=== PATIENT | female | born 1995 | race Caucasian/White ===

== ENCOUNTER 2019-03-22 15:53 | Emergency (ER) | payer OTHER ==
[2019-03-22 16:13] VITALS: BP 122/72
--- NOTE | 2019-03-22 16:40 | UC ---
Lower Extremity/Ankle HPI - HPI Summary HPI Summary: Pt presents with c/o left lower leg swelling and abrasion. Pt was walking in house and stepped in open heating vent that was covered with object. Pt has scabbed abrasion on left anterior lower vance. Pt is 32 1/2 weeks . - History of Current Complaint Chief Complaint: UCLowerExtremity Stated Complaint: LT LEG COMPLAINT Time Seen by Provider: 03/22/19 16:31 Hx Obtained From: Patient ?: Yes - Due 05/13/19 Onset/Duration: Sudden Onset, Lasting Days, Still Present Severity Initially: Moderate Severity Currently: Mild Pain Intensity: 3 Aggravating Factor(s): Standing Alleviating Factor(s): Rest, Elevation Able to Bear Weight: Yes - Risk Factors Gout Risk Factors: Negative DVT Risk Factors: Septic Arthritis Risk Factor: Negative - Allergies/Home Medications Allergies/Adverse Reactions: Allergies Allergy/AdvReac Type Severity Reaction Status Date / Time No Known Allergies Allergy Verified 03/22/19 16:05 Home Medications: Home Medications Acetaminophen [Acetaminophen Extra Strength] 500 mg PO Q6H PRN 03/22/19 [ History Confirmed 03/22/19] Vitamin TAB* 1 tab PO DAILY 03/22/19 [History Confirmed 03/22/19] PMH/Surg Hx/FS Hx/Imm Hx Previously Healthy: Yes - Surgical History Surgical History: Yes Surgery Procedure, Year, and Place: Left Foot Fracture repaired with Three Screws, 2018, [place]; Appendectomy, 2010, [place] - Family History Known Family History: Positive: Cardiac Disease - Social History Occupation: Employed Full-time Lives: With Family Alcohol Use: None Substance Use Type: None Smoking Status (MU): Former Smoker Type: Cigarettes Length of Time of Smoking/Using Tobacco: <1/2 PPD x 10 Years Have You Smoked in the Last Year: Yes When Did the Patient Quit Smoking/Using Tobacco: 09/04/18 - Immunization History Vaccination Up to Date: Yes Review of Systems All Other Systems Reviewed And Are Negative: Yes Constitutional: Positive: Negative Skin: Positive: Other - dried scab an dhealing wound left anterior lower extremity Eyes: Positive: Negative ENT: Positive: Negative Respiratory: Positive: Negative Cardiovascular: Positive: Negative Gastrointestinal: Positive: Negative Genitourinary: Positive: Negative Motor: Positive: Negative Neurovascular: Positive: Negative Musculoskeletal: Positive: Negative, Edema - non pitting edema, Myalgia Neurological: Positive: Negative Psychological: Positive: Negative Is Patient Immunocompromised?: No Physical Exam Triage Information Reviewed: Yes Appearance: Well-Appearing Vital Signs: Initial Vital Signs Temp 98 F 03/22/19 16:07 Pulse 92 03/22/19 16:07 Resp 18 03/22/19 16:07 BP 122/72 03/22/19 16:07 Pulse Ox 99 03/22/19 16:07 Vital Signs Reviewed: Yes Eye Exam: Normal ENT Exam: Normal ENT: Positive: Hearing grossly normal Dental Exam: Normal Neck exam: Normal Respiratory: Positive: No respiratory distress Musculoskeletal Exam: Normal Musculoskeletal: Positive: Strength Intact, ROM Intact, No Edema - no pitting edema. bialteral lower extremity, no calf tendereness, red streaking or notable swelling in either lower extremity Neurological Exam: Normal Psychological Exam: Normal Skin Exam: Other - smal 1 cm X 5 mm dried scab on left anterior lower extremity Lower Extremity Course/Dx - Differential Dx/Diagnosis Differential Diagnosis/HQI/PQRI: DVT, Infection Provider Diagnosis: Swelling of lower leg, Abrasion of left leg, Healing wound Discharge ED - Sign-Out/Discharge Documenting (check all that apply): Patient Departure All imaging exams completed and their final reports reviewed: No Studies - Discharge Plan Condition: Stable Disposition: HOME Patient Education Materials: Leg Edema (ED), Abrasion (ED) Referrals: [facility]FERR[facility] [Outside] - If Needed No Primary Care Phys,NOPCP [Primary Care Provider] - Additional Instructions: Please follow up with your PCP as needed. If your symptoms worsen, please seek care as soon as possible. - Billing Disposition and Condition Condition: STABLE Disposition: Home
== END 2019-03-22 16:48 | disposition home or self-care (01) ==
LOC: UCCORT 15:53
DX: S80.812A Abrasion, left lower leg, initial encounter (principal); S80.922D Unspecified superficial injury of left lower leg, subsequent encounter; M79.89 Other specified soft tissue disorders; Z87.891 Personal history of nicotine dependence; W22.09XA Striking against other stationary object, initial encounter; X58.XXXD Exposure to other specified factors, subsequent encounter; Y93.01 Activity, walking, marching and hiking; Y92.009 Unspecified place in unspecified non-institutional (private) residence as the place of occurrence of the external cause
CPT/HCPCS: 99211; G0463

== ENCOUNTER 2019-05-15 00:56 | Inpatient (IN) | payer OTHER ==
[2019-05-15] MEDS ORDERED: Buffered Lidocaine 1% SYRIN* 1 ML/SYRINGE INTRADERM ONE (01:43)
[2019-05-15] MEDS ORDERED: Promethazine INJ(RESTRICTED)* 25 MG/ML 1 ML VIAL IV ONE (01:43)
[2019-05-15] MEDS ORDERED: Lactated Ringers 1000 ML Bag* 1,000 ML IV ONE ×2 (01:43→05:45)
--- NOTE | 2019-05-15 01:54 | HP ---
General Information - Reason for Visit Leaking fluid - General Information Maternal Age: 23 Grav: 1 Para: 0 SAB: 0 IEA: 0 Estimated Due Date: 05/13/19 Determined By: LMP Gestational Age in Weeks/Days: 40 2/7 Maternal Blood Type and Rh: A Negative - Results this Serology/RPR Result: Non-Reactive Rubella Result: Non-Immune HBsAg Result: Negative HIV Result: Negative GBS Culture Result: Negative Past Medical History Delivery History: See Records Delivery History Comment: no prior deliveries Pertinent Past Medical History: Non-Contributory Pertinent Past Surgical History: See Records Past Surgical History Comment: Appendectomy (2012) Left foot surgery (2018) Pertinent Family History: Non-Contributory - Antepartal Records Antepartal Records: Reviewed, Complicated by: - Rh negative, rubella nonimmune, obesity, hyperemesis Review of Systems Constitutional: Uncomfortable CV Complaint: No Respiratory: Shortness of Breath: No Gastrointestinal: Nausea, Vomiting, Diarrhea Genitourinary: Leaking Fluid, No Dysuria, No Bleeding Musculoskeletal: No Epigastric Pain, Contractions Neurological: No Headache, No Visual Changes Movement: Normal Exam Allergies/Adverse Reactions: Allergies No Known Allergies Allergy (Verified 05/15/19 01:00) B/P: 155/81, P: 99, R: 20, T: 98.1 Lab Values - Entire Visit: Laboratory Tests 05/15/19 01:10 Vag Amniotic Fld Detect Positive - Measurements Height: 5 ft Weight: 229 lb Weight in lbs: 229.522790 Body Mass Index (BMI): 44.7 Pre- Weight: 197 lb Weight Gained This : 32 lbs and 0 ozs - Exam Breast: Breast Exam Deferred CVA: No CVA Tenderness Extremities: No Edema Heart: Normal Rhythm/Heart Sounds HEENT: No Significant Findings Lungs: Clear Bilaterally Reflexes: DTR 2+ Thyroid: No Thyromegaly - Abdominal Exam Abdomen Exam: Non-Tender, Fundal Height Consistent with Dates - Ultrasound/Biophysical Profile Ultrasound Status: Not Done Targeted Exam Findings See L&D Outpatient Visit Provider Note for Findings: N/A Estimated Weight: 7 lbs by osmin Cervical Exam: 3cm Effacement: 80% Station: -2 Presenting Part: Vertex Membrane Status: SROM Amniotic Fluid Evaluation: Positive ROM Plus Bleeding/Discharge: None EFM Findings - External Monitor Findings Baseline Heart Rate: 135 External Monitor Findings: No Pattern of Variable or Late Decelerations, Variability Moderate, Baseline Stable Contractions: Regular, Moderate, 45-90 Seconds Contraction Frequency: q 3-4 min Assessment/Plan - Assessment A: IUP at 40 2/7 weeks Category I FHR, no evidence of metabolic acidemia GBS negative SROM x 2 hrs P: Admit to inpatient Start IV, draw labs Encourage position changes to promote labor progress Reassess PRN Anticipate SVB - Obstetrical Risk Factors Obstetrical Risk Factors: Obesity - Plan Plan: Admit - Anticipate Vaginal Delivery - Date/Time of Admission Date of Admission: 05/15/19 Time of Admission: 01:45
[2019-05-15] MEDS ORDERED: fentaNYL* 50 MCG/ML 2 ML VIAL (100 MCG VIAL) IV SLOW PU ONE (02:00)
[2019-05-15 02:35] LABS: Hematocrit 37 % (35-47); Hemoglobin 12.4 g/dL (12.0-16.0); Mean Corpuscular HGB Conc 34 g/dL (31-36); Mean Corpuscular Hemoglobin 29 pg (27-31); Mean Corpuscular Volume 86 fL (80-97); Mean Platelet Volume 9.1 fL (7.4-10.4); Platelet Count 165 10^3/uL (150-450); Red Blood Count 4.28 10^6 /uL (3.70-4.87); Red Cell Distribution Width 15 % (10-15); White Blood Count 23.6 10^3/uL (3.5-10.8)
[2019-05-15 02:54] LABS: Urine Benzodiazepine Screen None Detected (None Detect); Urine Opiates Screen None Detected (None Detect)
[2019-05-15 03:05] LABS: ABS Basophils 0.1 10^3/ul (0-0.2); ABS Monocytes 1.9 10^3/ul (0-0.8); ABS Neutrophils 19.7 10^3/ul (1.5-7.7); Lymphocyte % 8.3 %
[2019-05-15] MEDS ORDERED: OBEPIDURAL* 250 ML EPIDURAL ONE (04:49)
[2019-05-15] MEDS ORDERED: Bupivacaine 0.25% SDV PF* 10 ML VIAL INJ ONE ×2 (04:55→04:56)
--- NOTE | 2019-05-15 04:55 | PN ---
Progress Note - Progress Note Date of Service: 05/15/19 Note: S: Feeling increasingly uncomfortable, requesting epidural. Has tried IV pain meds, tub O: B/P: 134/64, P: 108, R: 20, T: 98.1 FHR: 140s by auscultation UCs: q 2-4 min by palpation, moderate VE: 5.5/90/-2, clear fluid A: IUP at 40 2/7 weeks No evidence of metabolic acidemia SROM x 5 hrs Active labor P: Dr. Nelson paged, will be down shortly Reassess PRN Anticipate SVB
[2019-05-15] MEDS ORDERED: Phenylephrine 40 MCG/ML SYRINGE ONE (05:28)
[2019-05-15] MEDS: Lactated Ringers 1000 ML Bag* 1,000 ML IV SCH ×3 (05:37→08:52)
[2019-05-15] MEDS: Phenylephrine 40 MCG/ML SYRINGE IV PUSH PRN ×2 (05:40→05:43)
[2019-05-15] MEDS ORDERED: Sodium Citrate/Citric Acid* 15 ML UDC PO PRN (05:45)
[2019-05-15] MEDS ORDERED: Famotidine TAB* 20 MG PO PRN (05:45)
[2019-05-15] MEDS: EPHEDrine (Pressors)* 50 MG/ML VIAL IV PUSH PRN ×2 (05:50→06:12)
[2019-05-15] MEDS ORDERED: OBEPIDURAL* 250 ML EPIDURAL SCH (06:00)
[2019-05-15] MEDS ORDERED: Lactated Ringers 1000 ML Bag* 1,000 ML IV SCH ×2 (06:00→12:00)
[2019-05-15] MEDS ORDERED: Acetaminophen TAB* 325 MG PO ONE (08:38)
[2019-05-15] MEDS ORDERED: Acetaminophen TAB* 325 MG ONE (08:40)
[2019-05-15] MEDS ORDERED: Oxytocin in LR* 20 UNITS/1,000 ML BAG IVPB ONE (08:43)
[2019-05-15] MEDS ORDERED: Ampicillin ADVAN(*) 2 GM in NS 0.9% 100 ML* 100 ML IVPB ONE (08:45)
[2019-05-15] MEDS ORDERED: Ondansetron INJ* 2 MG/ML VIAL IV PRN (08:49)
[2019-05-15] MEDS ORDERED: GENTAMICIN ADULT IVPB ONE (09:00)
[2019-05-15] MEDS ORDERED: NS 0.9% IVPB ONE (09:00)
[2019-05-15] MEDS ORDERED: GENTAMICIN ADULT IVPB SCH (09:00)
[2019-05-15] MEDS ORDERED: NS 0.9% IVPB SCH (09:00)
[2019-05-15] MEDS ORDERED: Ondansetron INJ* 2 MG/ML VIAL ONE (09:01)
[2019-05-15] MEDS ORDERED: Clindamycin 900 MG/D5W BAG(*) 900 MG/50 ML BAG IVPB ONE (10:32)
[2019-05-15] MEDS ORDERED: Glycerin ADULT SUPP PR PRN (11:47)
[2019-05-15] MEDS ORDERED: Witch Hazel PAD* JAR TOPICAL PRN (11:47)
[2019-05-15] MEDS ORDERED: Dibucaine 1% 28.35 GM TUBE PR PRN (11:47)
[2019-05-15] MEDS ORDERED: Oxytocin in LR* 20 UNITS/1,000 ML BAG IVPB SCH (12:00)
[2019-05-15] MEDS: Ibuprofen TAB* 600 MG PO SCH ×2 (12:27→17:57)
[2019-05-15] MEDS ORDERED: RHO D Immune Globulin (HUMAN)* 300 MCG = 1,500 I.U. INJ IM ONE (13:45)
--- NOTE | 2019-05-15 13:57 | PROCNOTE ---
[facility] OB: Delivery Note - Delivery A Date of : 05/15/19 Time of : 11:24 [place] Sex: Male Weight at : 3410 lb Score 1 Minute: 5 Score 5 Minutes: 7 Gestational Age in Weeks and Days at Delivery: 40 Weeks and 2 Days Delivery Method: Spontaneous Vaginal Labor: Spontaneous Did Patient attempt ?: N/A, No Previous Amniotic Fluid: Meconium Estimated Blood Loss: 300 Anesthesia/Analgesia: CEI for Labor Delivered By: Nadira Lam Nursery Level of Nursery: Regular/Bedside - Perineum Perineal Injury: None/Intact Perineal Repair: None - Events Delivery Events of Note: Pitocin During Labor, Chorio in Labor, Maternal Temperature during Labor, Full Course of Antibiotics, Internal Scalp EKG - Additional Delivery Notes Additional Delivery Notes: Maternal temperature over 100.4 on two occasions 30 minutes apart with FHR >160 - dx of chorioamnionitis made. Treated with ampicillin, gentamicin, clindamycin , and PO Tylenol. Cervix at 10cm, pushing ensued. Normal spontaneous vertex delivery () of a liveborn male, 3410 grams and 's 5/7. Delivered right occiputo-anterior (EDUARDO), nuchal cord x1, light meconium. Body delivered without difficulty and placed on maternal abdomen. Nose and mouth bulb suctioned. Cord cut and clamped. Baby brought to warmer for additional help with transition. Placenta delivered spontaneously, via moeller, 3vc; appears intact. Perineum and vagina inspected - intact. Baby returned to maternal abdomen. Fundus firm, scant bleeding, pitocin infusing. EBL 300mL. Mother and baby in stable condition at time of note.
[2019-05-15] MEDS: Docusate CAP* 100 MG PO SCH ×2 (17:57→19:41)
[2019-05-15] MEDS: Simethicone TAB* 80 MG TAB.CHEW PO SCH ×2 (18:34→21:49)
[2019-05-15] MEDS: Acetaminophen TAB* 325 MG PO PRN (19:41)
[2019-05-16] MEDS: Ibuprofen TAB* 600 MG PO SCH ×4 (00:05→20:12)
[2019-05-16 06:10] LABS: Hematocrit 30 % (35-47); Hemoglobin 10.1 g/dL (12.0-16.0); Mean Corpuscular HGB Conc 34 g/dL (31-36); Mean Corpuscular Hemoglobin 29 pg (27-31); Mean Corpuscular Volume 86 fL (80-97); Mean Platelet Volume 9.3 fL (7.4-10.4); Platelet Count 146 10^3/uL (150-450); Red Blood Count 3.46 10^6 /uL (3.70-4.87); Red Cell Distribution Width 15 % (10-15); White Blood Count 30.4 10^3/uL (3.5-10.8)
[2019-05-16 06:20] LABS: ABS Eosinophils 0.1 10^3/ul (0-0.6); ABS Lymphocytes 3.4 10^3/ul (1.0-4.8); ABS Monocytes 1.9 10^3/ul (0-0.8); Eosinophil % 0.2 %; Lymphocyte % 11.2 %
[2019-05-16] MEDS ORDERED: Measles, Mumps,Rubella VACC* 0.5 ML/VIAL SUBCUT ONE ×2 (09:00→12:00)
[2019-05-16] MEDS ORDERED: Ferrous Gluconate TAB* 324 MG TAB PO SCH (09:00)
[2019-05-16] MEDS: Docusate CAP* 100 MG PO SCH ×3 (09:40→20:12)
[2019-05-16] MEDS ORDERED: RHO D Immune Globulin (HUMAN)* 300 MCG = 1,500 I.U. INJ IM ONE (16:00)
[2019-05-16] MEDS: Acetaminophen TAB* 325 MG PO PRN (23:42)
[2019-05-17] MEDS: Ibuprofen TAB* 600 MG PO SCH (04:33)
--- NOTE | 2019-05-17 06:44 | PTEDU ---
Patient Name: JORGE MAYA JORGE MAYA selected video: Never Ever Shake a Baby to view on 05/17/2019 at 6:43:38 AM from Raym[facility] [id number]
[2019-05-17] MEDS: Docusate CAP* 100 MG PO SCH (08:24)
[2019-05-17] MEDS: Acetaminophen TAB* 325 MG PO PRN (08:24)
[2019-05-17 09:46] VITALS: BP 108/70
== END 2019-05-17 13:21 | disposition home or self-care (01) | DRG 560 ==
LOC: MCHOBOUT 00:56 → MCHOB 01:46
PROVIDERS: ADMIT Midwife; ATTEND Advanced Practice Midwife
PROC: 10E0XZZ Delivery of Products of Conception, External Approach (ICD-10-PCS; principal; 2019-05-15)
DX: O48.0 Post-term pregnancy (principal); O75.2 Pyrexia during labor, not elsewhere classified; Z37.0 Single live birth; O77.0 Labor and delivery complicated by meconium in amniotic fluid; O41.1290 Chorioamnionitis, unspecified trimester, not applicable or unspecified; O69.81X0 Labor and delivery complicated by cord around neck, without compression, not applicable or unspecified; O99.214 Obesity complicating childbirth; Z3A.40 40 weeks gestation of pregnancy
CPT/HCPCS: 36415; 80307; 84112; 85025; 85461; 86850; 86900; 86901; 88307; 90707; A9270-GY; J1580; J2405; J2550; J2790; J3010; J3490

== ENCOUNTER 2019-06-06 19:21 | Emergency (ER) | payer OTHER ==
[2019-06-06 21:13] VITALS: BP 127/86
[2019-06-06 21:42] LABS: Influenza A Molecular Negative (Negative); Influenza B Molecular Negative (Negative)
--- NOTE | 2019-06-06 21:47 | UC ---
Throat Pain/Nasal [place] HPI - HPI Summary HPI Summary: 23-year-old woman comes in with chief complaint of upper respiratory tract infection symptoms for couple of days. She's had some runny nose. She has had fever bodyaches chills. She's taken acetaminophen which did help with symptoms. Minimal sore throat. No shortness of breath. She does have some left ear pain especially when she lays down on it. - History of Current Complaint Chief Complaint: UCGeneralIllness Stated Complaint: FEVER, CHILLS, BODY ACHES Time Seen by Provider: 06/06/19 21:39 Pain Intensity: 0 - Allergies/Home Medications Allergies/Adverse Reactions: Allergies Allergy/AdvReac Type Severity Reaction Status Date / Time No Known Allergies Allergy Verified 06/06/19 21:13 Home Medications: Home Medications Sertraline HCl [Zoloft] 25 mg PO DAILY 06/06/19 [History Confirmed 06/06/19] PMH/Surg Hx/FS Hx/Imm Hx Previously Healthy: Yes - Surgical History Surgical History: Yes Surgery Procedure, Year, and Place: Left Foot Fracture repaired with Three Screws, 2018, [place]; Appendectomy, 2011, [place] - Family History Known Family History: Positive: Cardiac Disease - Social History Alcohol Use: None Substance Use Type: None Smoking Status (MU): Former Smoker Type: Cigarettes Length of Time of Smoking/Using Tobacco: <1/2 PPD x 10 Years Have You Smoked in the Last Year: Yes When Did the Patient Quit Smoking/Using Tobacco: 09/04/18 - Immunization History Most Recent Influenza Vaccination: 01/14/19 Most Recent Pneumonia Vaccination: Unknown Vaccination Up to Date: Yes Review of Systems All Other Systems Reviewed And Are Negative: Yes Constitutional: Positive: Fever, Chills, Other - SEE HPI Skin: Positive: Negative Eyes: Positive: Negative ENT: Positive: Ear Ache, Nasal Discharge Respiratory: Positive: Negative Cardiovascular: Positive: Negative Gastrointestinal: Positive: Negative Motor: Positive: Negative Neurovascular: Positive: Negative Musculoskeletal: Positive: Myalgia Neurological: Positive: Negative Psychological: Positive: Negative Is Patient Immunocompromised?: No Physical Exam Triage Information Reviewed: Yes Appearance: No Pain Distress, Well-Nourished, Ill-Appearing - MILD Vital Signs: Initial Vital Signs Temp 97.6 F 06/06/19 21:09 Pulse 83 06/06/19 21:09 Resp 14 06/06/19 21:09 BP 127/86 06/06/19 21:09 Pulse Ox 97 06/06/19 21:09 Vital Signs Reviewed: Yes Eye Exam: Normal Eyes: Positive: Conjunctiva Clear ENT: Positive: Nasal drainage, TM dull - LEFT Neck: Positive: Supple Respiratory: Positive: Lungs clear, Normal breath sounds, No respiratory distress Cardiovascular: Positive: RRR Musculoskeletal: Positive: Strength Intact, ROM Intact Neurological: Positive: Alert, Muscle Tone Normal Psychological: Positive: Age Appropriate Behavior Skin Exam: Normal Throat Pain/Nasal Course/Dx - Course Course Of Treatment: DISCUSSED VIRAL VERSES BACTERIAL INFECTIONS AND THE ROLE OF ANTIBIOTICS. THE PATIENT PREFERS TO HAVE AN ANTIBIOTIC RX TO BE USED IF NOT IMPROVED. - Differential Dx/Diagnosis Provider Diagnosis: Upper respiratory infection Discharge ED - Sign-Out/Discharge Documenting (check all that apply): Patient Departure All imaging exams completed and their final reports reviewed: No Studies - Discharge Plan Condition: Stable Disposition: HOME Prescriptions: Amoxicillin PO (*) [Amoxicillin 875 MG (*)] 875 mg PO BID #20 tab Patient Education Materials: Upper Respiratory Infection (ED) Referrals: [facility] [place] [facility] [Outside] Additional Instructions: FOLLOW UP WITH YOUR DOCTOR IF NOT COMPLETELY IMPROVED. GET REEVALUATED SOONER IF NOT IMPROVING OR WORSE OR ANY QUESTIONS OR CONCERNS. - Billing Disposition and Condition Condition: STABLE Disposition: Home
== END 2019-06-06 21:52 | disposition home or self-care (01) ==
LOC: UCCORT 19:21
DX: J06.9 Acute upper respiratory infection, unspecified (principal); H92.02 Otalgia, left ear; M79.10 Myalgia, unspecified site; Z87.891 Personal history of nicotine dependence
CPT/HCPCS: 99212; G0463

== ENCOUNTER 2021-09-26 22:49 | Inpatient (IN) ==
[2021-09-26 23:26] LABS: Urine Appearance Cloudy; Urine Bilirubin Negative (Negative); Urine Blood 3+ (Negative); Urine Color Yellow; Urine Glucose Negative (Negative); Urine Ketones Negative (Negative); Urine Nitrite Negative (Negative); Urine Protein Negative (Negative); Urine Specific Gravity 1.024 (1.002-1.030); Urine Urobilinogen Negative (Negative)
[2021-09-26 23:40] LABS: Urine Benzodiazepine Screen None Detected (None Detect); Urine Cannabinoids Screen None Detected (None Detect); Urine Opiates Screen None Detected (None Detect)
[2021-09-26 23:49] LABS: Urine Bacteria Absent (Absent); Urine Red Blood Cell 1+(3-5/hpf) (Absent); Urine Squamous Epithelial Cell Present (Absent); Urine White Blood Cell 2+(11-20/hpf) (Absent)
[2021-09-27] MEDS ORDERED: Buffered Lidocaine 1% SYRIN 1 ml INTRADERM ONE (00:50)
[2021-09-27] MEDS ORDERED: Morphine 10 MG/ML VIAL (1 ml) IM ONE (04:48)
[2021-09-27] MEDS ORDERED: Promethazine INJ(RESTRICTED) 25 MG/ML 1 ml VIAL IM PRN (04:48)
[2021-09-27] MEDS ORDERED: Lactated Ringers 1000 ml BAG 1,000 ML IV ONE ×2 (08:04→14:53)
[2021-09-27] MEDS ORDERED: Lactated Ringers 1000 ml BAG 1,000 ML IV SCH ×3 (09:00→17:00)
[2021-09-27 09:29] LABS: ABS Lymphocytes 2.8 10^3/ul (1.0-4.8); ABS Monocytes 0.6 10^3/ul (0-0.8); ABS Neutrophils 6.7 10^3/ul (1.5-7.7); Eosinophil % 0.4 %; Hematocrit 32 % (35-47); Hemoglobin 10.1 g/dL (12.0-16.0); Lymphocyte % 27.4 %; Mean Corpuscular HGB Conc 32 g/dL (31-36); Mean Corpuscular Hemoglobin 27 pg (27-31); Mean Corpuscular Volume 85 fL (80-97); Nucleated Red Blood Cells % 0.2; Platelet Count 140 10^3/uL (150-450); Red Blood Count 3.72 10^6 /uL (3.70-4.87); Red Cell Distribution Width 20 % (10-15); White Blood Count 10.1 10^3/uL (3.5-10.8)
[2021-09-27] MEDS ORDERED: Oxytocin in LR 20 UNITS/1,000 ML BAG IVPB SCH ×2 (10:00→17:00)
[2021-09-27] MEDS ORDERED: OBEPIDURAL (200 ML) 200 ML EPIDURAL ONE (14:00)
[2021-09-27] MEDS ORDERED: Lidocaine 1.5% EPI 1:200,000 30 ML SDV ONE (14:21)
[2021-09-27] MEDS ORDERED: Sodium Citrate/Citric Acid LIQ 15 ML UDC PO PRN (14:53)
[2021-09-27] MEDS ORDERED: Phenylephrine 40 mcg/mL 10mL (400mcg) SYRINGE IV PUSH PRN ×2 (14:53)
[2021-09-27] MEDS ORDERED: OBEPIDURAL (200 ML) 200 ML EPIDURAL SCH (15:00)
[2021-09-27] MEDS ORDERED: Witch Hazel PAD JAR TOPICAL PRN (16:37)
[2021-09-27] MEDS ORDERED: RHO D Immune Globulin (HUMAN) 300 MCG = 1,500 I.U. INJ IM PRN (16:37)
[2021-09-27] MEDS ORDERED: Dibucaine 1% OINT 28.35 GM TUBE PR PRN (16:37)
[2021-09-27] MEDS ORDERED: Ondansetron 4 mg VIAL 2 MG/ML 2 ml VIAL IV PRN (19:55)
[2021-09-28 06:14] LABS: ABS Eosinophils 0.1 10^3/ul (0-0.6); ABS Lymphocytes 2.8 10^3/ul (1.0-4.8); ABS Monocytes 1.1 10^3/ul (0-0.8); ABS Neutrophils 8.5 10^3/ul (1.5-7.7); Eosinophil % 0.5 %; Hematocrit 29 % (35-47); Hemoglobin 9.7 g/dL (12.0-16.0); Lymphocyte % 22.6 %; Mean Corpuscular HGB Conc 33 g/dL (31-36); Mean Corpuscular Hemoglobin 28 pg (27-31); Mean Corpuscular Volume 86 fL (80-97); Mean Platelet Volume 8.9 fL (7.4-10.4); Nucleated Red Blood Cells % 0.1; Platelet Count 134 10^3/uL (150-450); Red Blood Count 3.42 10^6 /uL (3.70-4.87); Red Cell Distribution Width 20 % (10-15); White Blood Count 12.5 10^3/uL (3.5-10.8)
[2021-09-28 15:54] VITALS: BP 134/78
== END 2021-09-28 18:12 | disposition home or self-care (01) | DRG 560 ==
LOC: MCHOBOUT 22:49 → MCHOB 09-27 08:19
PROVIDERS: ADMIT Midwife; ATTEND Midwife

== ENCOUNTER 2023-07-17 07:51 | Inpatient (IN) ==
[2023-07-17] MEDS ORDERED: Prochlorperazine 5 mg/ml 2 ml VIAL (10 mg) IV PRN (09:15)
[2023-07-17] MEDS ORDERED: Lidocaine 1% VIAL 10 MG/ML 30 ML VIAL INJ PRN (09:15)
[2023-07-17] MEDS ORDERED: Buffered Lidocaine 1% SYRIN 1 ml INTRADERM ONE (09:15)
[2023-07-17] MEDS ORDERED: Famotidine IV 10 MG/ML 2 ml VIAL (20 mg) IV SLOW PU ONE (09:35)
[2023-07-17] MEDS: Oxytocin in LR 20,000 MILLI.UNIT/1,000 ML BAG IV SCH (09:51)
[2023-07-17] MEDS: Lactated Ringers 1000 ml BAG 1,000 ML IV SCH (09:51)
[2023-07-17] MEDS: Penicillin G Potassium IV 5,000,000 UNITS in NS 0.9% 100 ml BAG 100 ML IVPB ONE (09:53)
[2023-07-17 10:00] LABS: ABS Eosinophils 0.1 10^3/uL (0.0-0.5); ABS Lymphocytes 2.5 10^3/uL (1.0-4.8); ABS Monocytes 0.9 10^3/uL (0.0-0.9); ABS Neutrophils 8.1 10^3/uL (1.5-7.6); ABS Nucleated RBC 0.01 10^3/ul; Eosinophil % 0.6 %; Hematocrit 30.2 % (35-45); Hemoglobin 9.7 g/dL (11.5-14.3); Lymphocyte % 21.5 %; Mean Corpuscular Hemoglobin 25.2 pg (27-33); Mean Corpuscular Volume 78.7 fL (80-97); Mean Platelet Volume 8.7 fL (7.5-11.2); Nucleated Red Blood Cells % 0.1 %/100WBC (0.0-0.8); Platelet Count 205 10^3/uL (150-450); Red Blood Count 3.84 10^6/uL (3.63-4.92); Red Cell Distribution Width 16.2 % (12-17); White Blood Count 11.6 10^3/uL (3.8-11.8)
[2023-07-17 10:10] LABS: Urine Benzodiazepine Screen None Detected (None Detect); Urine Cannabinoids Screen None Detected (None Detect); Urine Opiates Screen None Detected (None Detect)
[2023-07-17] MEDS ORDERED: OBEPIDURAL (200 ML) 200 ML EPIDURAL ONE (13:36)
[2023-07-17] MEDS: Phenylephrine 40 mcg/mL 10mL (400mcg) SYRINGE IV PUSH PRN (14:13)
[2023-07-17] MEDS: Lactated Ringers 1000 ml BAG 1,000 ML IV ONE (14:15)
[2023-07-17] MEDS: Penicillin G Potassium IV 3,000,000 UNITS in NS 0.9% 100 ml BAG 100 ML IVPB SCH (14:20)
[2023-07-17] MEDS: OBEPIDURAL (200 ML) 200 ML EPIDURAL SCH (14:20)
[2023-07-17] MEDS ORDERED: Lactated Ringers 1000 ml BAG 1,000 ML IV ONE (14:27)
[2023-07-17] MEDS ORDERED: Phenylephrine 40 mcg/mL 10mL (400mcg) SYRINGE IV PUSH PRN (14:27)
[2023-07-17] MEDS ORDERED: Sodium Citrate/Citric Acid LIQ 15 ML UDC PO PRN (14:27)
[2023-07-17] MEDS ORDERED: Lactated Ringers 1000 ml BAG 1,000 ML IV SCH (15:00)
[2023-07-17 16:19] LABS: Urine Appearance Clear; Urine Bilirubin Negative (Negative); Urine Blood Negative (Negative); Urine Color Colorless; Urine Glucose Negative (Negative); Urine Ketones Negative (Negative); Urine Nitrite Negative (Negative); Urine Protein Negative (Negative); Urine Specific Gravity 1.008 (1.002-1.030); Urine Urobilinogen Negative (Negative); Urine pH 6.5 (5.0-8.0)
[2023-07-17] MEDS ORDERED: Oxytocin in LR 20,000 MILLI.UNIT/1,000 ML BAG IV SCH (18:50)
[2023-07-17] MEDS ORDERED: Witch Hazel PAD JAR TOPICAL PRN (18:50)
[2023-07-17] MEDS ORDERED: Glycerin ADULT 2.4 gm SUPP PR PRN (18:50)
[2023-07-17] MEDS ORDERED: Dibucaine 1% OINT 28.35 GM TUBE PR PRN (18:50)
[2023-07-18 06:56] LABS: ABS Basophils 0.1 10^3/uL (0.0-0.1); ABS Eosinophils 0.1 10^3/uL (0.0-0.5); ABS Lymphocytes 2.6 10^3/uL (1.0-4.8); ABS Neutrophils 10.1 10^3/uL (1.5-7.6); ABS Nucleated RBC 0.02 10^3/ul; Eosinophil % 0.8 %; Hematocrit 28.3 % (35-45); Hemoglobin 9.3 g/dL (11.5-14.3); Lymphocyte % 18.8 %; Mean Corpuscular Hemoglobin 25.3 pg (27-33); Mean Corpuscular Hgb Conc 32.7 g/dL (31-36); Mean Corpuscular Volume 77.5 fL (80-97); Mean Platelet Volume 8.5 fL (7.5-11.2); Nucleated Red Blood Cells % 0.1 %/100WBC (0.0-0.8); Platelet Count 178 10^3/uL (150-450); Red Blood Count 3.66 10^6/uL (3.63-4.92); Red Cell Distribution Width 16.1 % (12-17); White Blood Count 13.9 10^3/uL (3.8-11.8)
[2023-07-18] MEDS: Phenylephrine 40 mcg/mL 10mL (400mcg) SYRINGE ONE (10:06)
[2023-07-18] MEDS: Lidocaine 1.5% EPI 1:200,000 30 ML SDV ONE (10:06)
[2023-07-18] MEDS: RHO D Immune Globulin (HUMAN) 300 MCG = 1,500 I.U. INJ IM ONE (11:38)
[2023-07-19 08:12] VITALS: BP 111/70
== END 2023-07-19 14:27 | disposition home or self-care (01) | DRG 560 ==
LOC: MCHOBOUT 07:51 → MCHOB 08:58
PROVIDERS: ADMIT Advanced Practice Midwife; ATTEND Advanced Practice Midwife